=== PATIENT | male | born 1985 | race Caucasian/White ===

== ENCOUNTER 2018-05-14 03:46 | Emergency (ER) | payer OTHER ==
[~2018-05-14] VITALS: Ht 175.3 cm; Wt 83.9 kg
[2018-05-14 03:52] VITALS: BP 123/72
[2018-05-14] MEDS ORDERED: NOHOMEMEDICATIONS (04:01)
[2018-05-14] MEDS ORDERED: IBUPROFEN 400400 M2 PO (04:28)
== END 2018-05-14 05:15 | disposition home or self-care (01) ==
LOC: ER 03:46
DX: S63.285A Dislocation of proximal interphalangeal joint of left ring finger, initial encounter (principal); X50.9XXA Other and unspecified overexertion or strenuous movements or postures, initial encounter; Y93.72 Activity, wrestling; Y92.89 Other specified places as the place of occurrence of the external cause; Y99.8 Other external cause status